=== PATIENT | male | born 1940 | race Caucasian/White ===

== ENCOUNTER 2018-03-03 12:34 | Inpatient (IN) | payer MEDICARE, BC ==
[~2018-03-03 12:34] MED LIST: ISOVUE-370 76%-LOCM 1 ML ONE
[2018-03-03] MEDS ORDERED: methylPREDNISolone Sod Succ/PF 125 MG/2 ML VIAL ONE (13:27)
[2018-03-03 13:31] LABS: #Basophils 0.1 thou/uL (0.0-0.2); #Eosinphils 0.1 thou/uL (0.0-0.7); #Lymphocytes 1.3 thou/uL (1.20-3.40); #Monocytes 0.6 thou/uL (0.11-0.59); %Basophils 0.9 % (0.0-1.0); %Eosinophils 2.1 % (0.0-10.0); %Lymphocytes 22.1 % (21.0-51.0); %Neutrophils 65.9 % (42.0-75.0); Hemoglobin 12.5 g/dL (14.0-18.0); Mean Corpuscular Hemoglobin 32.6 pg (27.0-31.0); Mean Corpuscular Volume 98.8 fL (78.0-98.0); Mean Platelet Volume 9.1 fL (7.4-10.4); Platelet Count 138 thou/uL (130-400); RBC Distribution Width 12.7 % (11.5-14.5); Red Blood Cell (RBC) Count 3.83 mill/uL (4.70-6.10); White Blood Cell (WBC) Count 6.1 thou/uL (4.8-10.8)
--- NOTE | 2018-03-03 13:37 | CT ---
CT HEAD NONCONTRAST: Date: 03/03/18 HISTORY: Left-sided weakness. COMPARISON: 09/01/04. FINDINGS: There is no evidence of acute intracranial hemorrhage or infarct. Diffuse cortical atrophy and chroni c ischemic small vessel disease has slightly progressed over the 13 year interval. No mass effect or shift of midline structures. IMPRESSION: No acute intracranial abnormalities are demonstrated on noncontrast CT head. Findings called to Dr. Gupta in the emergency department at 1305 hours. CODE CR. POS: [facility]
[2018-03-03 13:38] LABS: INR-International Normal Ratio 2.4; PTT 32.6 SEC (22.9-36.1); Prothrombin Time 26.2 SEC (12.0-14.7)
[2018-03-03 14:01] LABS: ALT (SGPT) 37 U/L (8-55); AST (SGOT) 47 U/L (5-34); Albumin 3.8 g/dL (3.4-4.8); Alkaline Phosphatase 49 U/L (40-150); Anion Gap 14 mmol/L (10-20); BUN (Urea Nitrogen) 36 mg/dL (8.4-25.7); Bilirubin, Total 0.6 mg/dL (0.2-1.2); Calc. Creatinine Clearance 0 mL/min (70-130); Calcium 11.9 mg/dL (7.8-10.44); Carbon Dioxide 27 mmol/L (23-31); Chloride 102 mmol/L (98-107); Estimated GFR-MDRD 43; Globulin 2.5 g/dL (2.4-3.5); Glucose 98 mg/dL (83-110); Potassium 3.8 mmol/L (3.5-5.1); Protein, Total 6.3 g/dL (5.8-8.1); Sodium 139 mmol/L (136-145)
[2018-03-03] MEDS ORDERED: Aspirin Chewable 81 MG TAB ONE (14:07)
[2018-03-03 14:21] LABS: CKMB 24.9 ng/mL (0-6.6)
--- NOTE | 2018-03-03 14:35 | RAD ---
FRONTAL VIEW CHEST: Date: 03/03/18 COMPARISON: 04/06/15. INDICATION: Syncope. FINDINGS: There is patient rotation with prominence of the cardiac silhouette projecting the cardiac silhouette to the right. Left side cardiac pacing device is again seen. There is obscuration of portions of the right lung due to the patient rotation and prominent cardiac silhouette. No obvious consolidation of the left lung. IMPRESSION: 1. Rotated patient limits assessment. 2. Enlarged cardiac silhouette, correlate clinically. 3. Limited visualization of the right lung. POS: [facility]
[2018-03-03 14:42] LABS: Bilirubin Negative (Negative); Blood, Urine Trace (Negative); Clarity TURBID (Clear); Glucose, Urine (Dipstick) Negative (Negative); Leukocyte Negative (Negative); Nitrite Negative (Negative); Protein, Urine (Dipstick) Negative (Neg-Trace); Specific Gravity, Urine 1.041 (1.002-1.036); Urobilinogen 0.2 mg/dL (0.2-1.0); pH, Urine 7.5 (5.0-9.0)
[2018-03-03 14:43] LABS: Bacteria/HPF None Seen HPF (None Seen); Hyaline Casts/LPF 4-6 HYALINE CAST LPF (0-3 Hyaline); Pathc Cast-AUWi Flag 1.59 (0-2.49); Squamous Epithelial 0-3 HPF (0-3); WBC/HPF 0-3 HPF (0-3)
--- NOTE | 2018-03-03 14:55 | CT ---
CT ARTERIOGRAM NECK WITH IV CONTRAST AND 3D MIP IMAGING: CT ARTERIOGRAM HEAD WITH IV CONTRAST AND 3D MIP IMAGING: CT BRAIN WITH IV CONTRAST: HISTORY: Altered mental status. Syncope. FINDINGS: There is normal branching of the great vessels at the aortic arch with mild calcification. Good flow into each carotid and vertebral system. At the right carotid bifurcation, there is calcified and noncalcified plaque. Within the proximal to mid right cervical ICA is a short segment focus of stenosis, estimated at 70%. On the left, there i s calcification without significant stenosis. Intracranially, there is calcification within the carotid siphons. The pilot point of [place] is intact. No focal filling defect, aneurysm, or significant stenosis apparent. No abnormal areas of parenchyma l enhancement are apparent. IMPRESSION: 1. Atherosclerosis. 2. Short segment focus of moderate stenosis involving the right extracranial internal carotid artery . Findings were called to Dr. Gupta in the emergency department at 1340 hours. CODE CR POS: [facility]
[2018-03-03] MEDS ORDERED: Nitroglycerin 0.4 MG TAB (25 Tab Bottle) SL PRN (15:41)
[2018-03-03] MEDS ORDERED: Diabetic Tussin 200 MG/10 ML UDCUP PO PRN (15:41)
[2018-03-03] MEDS ORDERED: Ondansetron PF 4 MG/2 ML Vial IVP PRN (15:41)
[2018-03-03] MEDS ORDERED: Acetaminophen 325 MG TAB PO PRN (15:41)
[2018-03-03] MEDS ORDERED: Loratadine 10 MG TAB PO PRN (15:41)
[2018-03-03] MEDS ORDERED: Loperamide HCl 2 MG CAP PO PRN (15:41)
[2018-03-03] MEDS ORDERED: Bisacodyl 10 MG SUPP PR PRN (15:41)
[2018-03-03] MEDS ORDERED: Senokot S 8.6-50 MG TAB PO PRN (15:41)
[2018-03-03] MEDS ORDERED: Bisacodyl 5 MG TAB PO PRN (15:41)
[2018-03-03] MEDS ORDERED: Cepastat Lozenges 1 LOZ PO PRN (15:41)
[2018-03-03] MEDS ORDERED: Artificial Tears 18 DROP/0.9 ML EA EYE PRN (15:41)
[2018-03-03] MEDS ORDERED: hydrALAZINE 20 MG/ML VIAL SLOW IVP PRN (15:41)
[2018-03-03] MEDS ORDERED: Sodium Chloride 0.65% Nasal 44 ML BOT EA NARE PRN (15:41)
[2018-03-03] MEDS ORDERED: Eucerin (Mineral Oil/Petrolatum,White) 30 gm Jar TOP PRN (15:41)
[2018-03-03 16:07] LABS: Magnesium 1.9 mg/dL (1.6-2.6)
--- NOTE | 2018-03-03 16:26 | HP ---
PRIMARY CARE PHYSICIAN: Dr. Fabien Polanco. PRIMARY FINAL ASSEMBLY WORKER: Dr. Mendez Licea. REASON FOR ADMISSION: Syncope/seizure/stroke, elevated troponin, COPD exacerbation. HISTORY OF PRESENT ILLNESS: A 77-year-old male, who has multiple medical problems including chronic atrial fibrillation, on chronic anticoagulation therapy; COPD with chronic respiratory failure with home oxygen therapy as well as chronic diastolic heart failure, who presented to emergency room for evaluation of sudden change in mental status at home around lunchtime. The patient's witnessed the episode, who provided history. The patient was seated at lunchtime in chair and while seated, he was having involuntary movement of upper and lower extremity as if seizure without any up-rolling of eyeball or associated with incontinence or any tongue bite. With the seizing movement, the patient was trying to get up from chair. At that time, he is supposed to fall, but the patient's kept the chair underneath to prevent fall. He did not have any fall on the floor. He was able to talk a couple of sentences to his at that time, which was pretty much normal per . The patient was appeared slightly confused and subsequently again he lost consciousness for seconds while seated in chair. The patient's did not notice any focal left or right-sided weakness. The patient was not complaining of any chest pain or palpitation. The patient does have chronic COPD and he is chronically short of breath and he has significant physical deconditioning. He ambulates with a walker and he drags left side of his lower extremity whenever he ambulates from his previous stroke. The patient has almost one year history of lightheadedness and dizziness and for that reason, the patient was evaluated extensively with CT brain as well as ENT evaluation and all was unremarkable. Four days ago when the patient was in bathroom at that time, his leg gave up and he was extremely weak. He was not able to lift himself. The patient's family member reports that his condition is getting significantly weak from his baseline for the last few weeks. The patient does have oxygen at home, but he is not using oxygen regularly. When paramedics was called by his today, he was hypoxic and he was given oxygen and subsequently, he was brought to emergency room for evaluation. In the emergency room, CT brain did not show any acute intracranial process, but he was found with right internal carotid artery stenosis. All other blood test was unremarkable except elevated CK-MB and troponin. 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 PAST SURGICAL HISTORY: Pacemaker placement. PAST PSYCHIATRIC HISTORY: Anxiety and depression. FAMILY HISTORY: No family history of coronary artery disease, stroke, or cancer. ALLERGIES: BENZODIAZEPINE. SOCIAL HISTORY: No history of smoking, alcohol or drug abuse. pt is . walks with walker. EMERGENCY ROOM COURSE: The patient is given aspirin, DuoNeb therapy, and Solu-Medrol 125 mg. REVIEW OF SYSTEMS: CONSTITUTIONAL: Negative for weight loss or gain, ability to conduct usual activities. SKIN: Negative for rash, itching. EYES: Negative for double vision, pain. ENT/MOUTH: Negative for nose bleeding, neck stiffness, pain, tenderness. CARDIOVASCULAR: Negative for palpitations, dyspnea on exertion, orthopnea. RESPIRATORY: Negative for shortness of breath, wheezing, cough, hemoptysis, fever or night sweats. GASTROINTESTINAL: Negative for poor appetite, abdominal pain, heartburn, nausea , vomiting, constipation, or diarrhea. GENITOURINARY: Negative for urgency, frequency, dysuria, nocturia. MUSCULOSKELETAL: Negative for pain, swelling. NEUROLOGIC/PSYCHIATRIC: Negative for anxiety, depression. ALLERGY/IMMUNOLOGIC: Negative for skin rash, bleeding tendency. Please see my HPI for pertinent positive and negative. All other review of systems reviewed and negative except as mentioned in HPI. CURRENT HOME MEDICATIONS: 1. Seroquel 200 mg at bedtime and 50 mg in the morning. 2. Warfarin 5 mg daily except on and Thursday, he takes 7.5 mg. 3. Synthroid 100 mcg p.o. daily. 4. Aldactazide 25/25 one tablet daily. 5. Coreg 3.125 mg b.i.d. PHYSICAL EXAMINATION: VITAL SIGNS: Currently, blood pressure 136/71, pulse 71, respiratory rate 18, saturation 99% on 2 L oxygen, temperature 98.5, weight 107.7 kg. GENERAL: The patient is currently alert, awake, follows commands. No obvious acute distress. HEENT: Head; normocephalic, atraumatic. Eyes; pupils round, reactive to light. Extraocular muscle intact. ENT; oropharynx within normal limits. Moist mucous membranes. No oral lesion. No pharyngeal erythema. No exudate. NECK: Supple. No JVD. No thyromegaly. No carotid bruit. LUNGS: Bilateral end-expiratory wheezing. No rales. No accessory muscles of respiration in use. CARDIAC: S1 and S2. Slightly irregular. No gallop. No rub. ABDOMEN: Soft. Obesity present. Bowel sounds present. Nontender. Nondistended. No organomegaly. No mass. No suprapubic tenderness. BACK: Unremarkable. No CVA tenderness. EXTREMITIES: Upper extremities; passive movement of all joints are normal. Lower extremities; passive movement of all joints are normal. SKIN: No skin rash other than multiple old bruises on the skin. NEUROLOGIC: The patient is able to lift all four limbs. Could not find out any focal deficit. He does have residual left-sided weakness from stroke. His sensation is intact. His reflex is symmetrical. Plantar bilateral flexor grossly. Cerebellar signs are negative. PSYCHIATRIC: Normal affect. SIGNIFICANT LABORATORY DATA: CT brain based on my review; no acute intracranial process, cortical atrophy, chronic ischemic white matter changes. CT jamul of [place] showing right carotid stenosis. CBC; WBC 6.1, hemoglobin 12.5, MCV 98.8, platelets 138. INR 2.4. BMP; sodium 139, potassium 3.8, chloride 102, carbon dioxide 27, anion gap 14, BUN 36, creatinine 1.57, glucose 98, calcium 11.9, AST 47, ALT 37, alkaline phosphatase 49, albumin 3.8. CK-MB 24.9, troponin I 0.031. Urinalysis unremarkable. EKG showing pacemaker rhythm. Chest x-ray showing COPD changes, cardiomegaly. ASSESSMENT AND PLAN: 1. Acute encephalopathy, etiology is uncertain, but differential diagnosis for acute encephalopathy is syncope/seizure/cerebrovascular accident. The patient will need more further investigation. Neurology will be consulted. 2. Syncope/seizure. The patient's family member reports involuntary movement when that happened, but pretty much description is atypical. We will ask Neurology to comment about that. He had a previous history of stroke and that may be related with post-cerebrovascular accident seizure. He will benefit from EEG. He has pacemaker, so we have to find it out whether pacemaker is compatible with MRI or not to get an MRI. We will check prolactin, magnesium, TSH as a part of workup and we will keep seizure precaution. We will do neuro check. 3. Suspected cerebrovascular accident. We will do neuro check q.4 hourly. The patient does have right-sided carotid stenosis. At this point, does not have any lateralization. We will try to do MRI if possible. We will obtain echocardiography. Cardiovascular surgeon will be involved if the patient has significant carotid stenosis based on report. Neurology will be consulted. The patient will need PT, OT, and possible rehab placement. 4. Chronic obstructive pulmonary disease exacerbation. We will continue with DuoNeb q.6 hourly, Pulmicort nebulization twice daily. 5. Chronic respiratory failure, on home oxygen therapy. Oxygen to keep saturation above 92%. 6. Elevated troponin and CK-MB. We will check total CK and we will do serial cardiac enzyme x3. Echocardiography will be obtained. We will continue with aspirin 81 mg daily. Cardiology will be consulted. 7. Mild hypercalcemia, probably related with hydrochlorothiazide. We will repeat calcium level tomorrow. 8. Macrocytic anemia. We will start folic acid, vitamin B12 therapy, and we will check homocysteine level. 9. Chronic anticoagulation with warfarin. We will continue PT/INR while in the hospital and monitor PT/INR on a daily basis. 10. Chronic kidney disease, stage 3. We will monitor renal function. 11. Anxiety and depression. The patient is taking Seroquel, which we will continue while in hospital. 12. Hypothyroidism. Continue Synthroid 100 mcg p.o. daily. 13. Chronic diastolic heart failure. We will check BNP. Echocardiography will be obtained. We will continue Coreg 3.125 mg p.o. b.i.d. 14. History of pacemaker for chronic atrial fibrillation. We will interrogate pacemaker to rule out any pacemaker-related arrhythmia. 15. Chronic atrial fibrillation, currently rate controlled. Continue Coreg 3.125 mg p.o. b.i.d. and warfarin as per home dosage. 16. Deep venous thrombosis prophylaxis, not needed because the patient is already on warfarin therapy. 17. Gastrointestinal prophylaxis. Pepcid 20 mg p.o. b.i.d. CODE STATUS: The patient is full code. The patient's is surrogate decision maker. DISPOSITION PLAN: This patient will need rehabilitation placement for his significant physical deconditioning. Plan of care discussed with the patient and family member at bedside in the emergency room. Job ID: [id number] [facility]
[2018-03-03 17:59] LABS: Troponin I 0.028 ng/mL (< 0.028)
[2018-03-03 18:52] VITALS: BMI 34.9
[2018-03-03] MEDS: Budesonide 0.5 MG/2 ML NEB INH SCH (19:27)
[2018-03-03] MEDS: Mometasone/Formoterol 120 PUFF INHALER INH SCH (19:28)
[2018-03-03] MEDS: Carvedilol 3.125 MG TAB PO SCH (20:12)
[2018-03-03] MEDS: Warfarin Sodium 5 MG TAB PO SCH (20:12)
[2018-03-03 20:24] LABS: Troponin I 0.019 ng/mL (< 0.028)
[2018-03-03] MEDS: Famotidine 20 MG TAB PO SCH (21:13)
[2018-03-03] MEDS: Atorvastatin Calcium 40 MG TAB PO SCH (21:13)
--- NOTE | 2018-03-04 00:11 | CON ---
DATE OF CONSULTATION: REASON FOR CONSULTATION: Evaluate the patient with carotid stenosis. HISTORY OF PRESENT ILLNESS: Mr. Elkins is a 77-year-old gentleman who was brought to the emergency room after having an event at lunch time with his . He was apparently sitting at the table, became very rigid in both his arms and legs and shaky. His described it as almost seizure-like. She was able to get a chair behind him and then he sat and fell face forward into his plate of food. She says that he may have passed out for a short period of time. He was brought by EMS to the hospital. He has had a CT scan of his brain, which shows no acute abnormality. CT scan of the carotid system has been performed. It is reported that there is a 70% stenosis of the right internal carotid artery just distal to the bifurcation. I evaluated the CT scan. There is a calcified plaque involving his proximal right internal carotid artery. There is noncalcified plaque within the calcification. The stenosis on the coronal views and longitudinal views does not show a critical stenosis. The patient does have a history of a previous stroke. He approximately 16 years ago had an episode where he became very weak. He was diagnosed with a stroke at that time. It is unclear as to what workup was done around that time. He has a history of chronic atrial fibrillation. He is on chronic Coumadin therapy with an INR of 2.5. He has chronic COPD, is managed with Dr. Mckeon. He does have oxygen at home, but he does not use it very much. He is on 4 L of oxygen currently and can talk in about 5-word partial sentences at a time at most. He is very deconditioned and has been lightheaded and dizzy over the last year. He has had a significant ENT and neurologic workup with no diagnosis given. His deconditioning, he has been working on at a gym with the animal attendants and trainers, but does not seem to make any headway. His says he can walk, but uses either the fajardo to walker to help steady himself. PAST SURGICAL HISTORY: 1. Left shoulder surgery. 2. Pacemaker placement. CURRENT MEDICATIONS: Noted. ALLERGIES: LORAZEPAM. REVIEW OF SYSTEMS: As above. PHYSICAL EXAMINATION: GENERAL: This is a chronically ill appearing gentleman, who I have evaluated in the emergency department. NECK: Supple. I cannot auscultate a bruit. CHEST: Distant breath sounds bilaterally. HEART: Rhythm is irregularly irregular. ABDOMEN: Soft and nontender. EXTREMITIES: No significant edema. NEUROLOGIC: Motor exam is symmetric and strong bilaterally. There are no deficits grossly. He has no visual deficits grossly. ASSESSMENT AND PLAN: I have reviewed his CT angiogram. He does not have a significant right carotid stenosis. I have discussed the findings with his family. They are obviously searching for answers as to his dizziness, lightheadedness, and what happened to him today with his seizure-like activity. This is unrelated to the carotid stenosis. At most due to his chronic illness, I would add an 81 mg aspirin-but with him being on Coumadin and anticoagulated, I am not sure that he would tolerate this, I would leave this at your discretion. Job ID: [id number]
[2018-03-04 05:14] LABS: #Lymphocytes 0.8 thou/uL (1.20-3.40); #Monocytes 0.5 thou/uL (0.11-0.59); #Neutrophils 6.3 thou/uL (1.40-6.50); %Basophils 0.1 % (0.0-1.0); %Eosinophils 0.2 % (0.0-10.0); %Lymphocytes 10.5 % (21.0-51.0); %Neutrophils 83.3 % (42.0-75.0); Hemoglobin 12.2 g/dL (14.0-18.0); INR-International Normal Ratio 2.4; Mean Corpuscular HGB CONC 32.8 g/dL (32.0-36.0); Mean Corpuscular Hemoglobin 32.5 pg (27.0-31.0); Mean Platelet Volume 9.4 fL (7.4-10.4); Platelet Count 137 thou/uL (130-400); Prothrombin Time 25.8 SEC (12.0-14.7); RBC Distribution Width 12.6 % (11.5-14.5); Red Blood Cell (RBC) Count 3.77 mill/uL (4.70-6.10); White Blood Cell (WBC) Count 7.5 thou/uL (4.8-10.8)
[2018-03-04 05:57] LABS: ALT (SGPT) 35 U/L (8-55); AST (SGOT) 43 U/L (5-34); Albumin 3.9 g/dL (3.4-4.8); Alkaline Phosphatase 47 U/L (40-150); Anion Gap 14 mmol/L (10-20); BUN (Urea Nitrogen) 37 mg/dL (8.4-25.7); Bilirubin, Total 0.4 mg/dL (0.2-1.2); Calc. Creatinine Clearance 69 mL/min (70-130); Calcium 11.1 mg/dL (7.8-10.44); Carbon Dioxide 25 mmol/L (23-31); Cardiac Risk 2.5 (Less than 4.5); Chloride 105 mmol/L (98-107); Cholesterol 133 mg/dl (< 200 Desired); Estimated GFR-MDRD 51; Globulin 2.5 g/dL (2.4-3.5); Glucose 122 mg/dL (83-110); HDL Cholesterol 54 mg/dL (>60 Neg Risk); LDL Cholesterol, Calculated 68 mg/dL; Potassium 3.7 mmol/L (3.5-5.1); Protein, Total 6.4 g/dL (5.8-8.1); Sodium 140 mmol/L (136-145); Triglycerides 57 mg/dL (Less than 150)
[2018-03-04] MEDS: Levothyroxine Sodium 100 MCG TAB PO SCH (06:14)
[2018-03-04] MEDS: Mometasone/Formoterol 120 PUFF INHALER INH SCH ×2 (07:18→18:19)
[2018-03-04] MEDS: Budesonide 0.5 MG/2 ML NEB INH SCH ×2 (07:22→18:19)
[2018-03-04] MEDS: Folic Acid 1 MG TAB PO SCH (10:08)
[2018-03-04] MEDS: Aspirin Chewable 81 MG TAB PO SCH (10:08)
[2018-03-04] MEDS: Cyanocobalamin (Vitamin B-12) 1,000 MCG TAB PO SCH (10:08)
[2018-03-04] MEDS: Famotidine 20 MG TAB PO SCH ×2 (10:10→21:45)
[2018-03-04] MEDS: Carvedilol 3.125 MG TAB PO SCH ×2 (10:11→17:00)
--- NOTE | 2018-03-04 11:52 | PDOC.PN ---
- Subjective Encounter Start Date: 03/04/18 Encounter Start Time: 07:35 -: old records requested/rev pt's dyspnea improving, no further neuro event Patient seen and examined. No new complaints. No overnight events - Objective Resuscitation Status - Order Detail: 03/03/18 15:27 Resuscitation Status Routine Resuscitation Status: FULL: Full Resuscitation MAR Reviewed: Yes Vital Signs & Weight: Vital Signs (12 hours) Temp Pulse Resp BP BP Pulse Ox 03/04/18 11:39 97.4 F L 70 18 122/69 95 03/04/18 07:45 97.8 F 69 20 157/75 H 95 03/04/18 07:23 95 03/04/18 07:22 73 16 95 03/04/18 07:18 73 18 95 03/04/18 05:10 68 128/61 03/04/18 05:07 70 120/58 L 03/04/18 05:06 134/76 03/04/18 04:00 97.8 F 73 19 129/56 L 95 03/04/18 00:00 97.9 F 64 19 112/60 93 L Weight Weight 230 lb Result Diagrams: 03/04/18 04:46 03/04/18 04:46 Additional Labs: Accuchecks 03/03/18 12:59 POC Glucose 101 EKG Reviewed by me: Yes (afib) Phys Exam - Physical Examination Constitutional: NAD HEENT: PERRLA, moist MMs, sclera anicteric Neck: no JVD, supple Respiratory: no rales, wheezing present Cardiovascular: no significant murmur, irregular Gastrointestinal: soft, non-tender, no distention, positive bowel sounds Musculoskeletal: no edema, pulses present Neurological: non-focal, normal sensation Lymphatic: no nodes Psychiatric: normal affect, A&O x 3 Skin: no rash, normal turgor Dx/Plan (1) COPD exacerbation Code(s): J44.1 - CHRONIC OBSTRUCTIVE PULMONARY DISEASE W (ACUTE) EXACERBATION Status: Acute Comment: on debbie landrum (2) Dizziness Code(s): R42 - DIZZINESS AND GIDDINESS Status: Acute Comment: unexplained, may be overall weakness (3) Rhabdomyolysis Code(s): M62.82 - RHABDOMYOLYSIS Status: Acute (4) Seizure Code(s): R56.9 - UNSPECIFIED CONVULSIONS Status: Acute Comment: suspected (5) Syncope Code(s): R55 - SYNCOPE AND COLLAPSE Status: Acute (6) Carotid stenosis, right Code(s): I65.21 - OCCLUSION AND STENOSIS OF RIGHT CAROTID ARTERY Status: Chronic (7) Chronic anticoagulation Code(s): Z79.01 - LAVATORY ATTENDANT (CURRENT) USE OF ANTICOAGULANTS Status: Chronic (8) Chronic atrial fibrillation Code(s): I48.2 - CHRONIC ATRIAL FIBRILLATION Status: Chronic (9) Dyslipidemia Code(s): E78.5 - HYPERLIPIDEMIA, UNSPECIFIED Status: Chronic (10) Hypothyroidism Code(s): E03.9 - HYPOTHYROIDISM, UNSPECIFIED Status: Chronic (11) Macrocytic anemia Code(s): D53.9 - NUTRITIONAL ANEMIA, UNSPECIFIED Status: Chronic (12) Obesity (BMI 30-39.9) Code(s): E66.9 - OBESITY, UNSPECIFIED Status: Chronic (13) Physical deconditioning Code(s): R53.81 - OTHER MALAISE Status: Chronic (14) CVA (cerebral vascular accident) Code(s): I63.9 - CEREBRAL INFARCTION, UNSPECIFIED Status: Suspected (15) Bipolar disorder Code(s): F31.9 - BIPOLAR DISORDER, UNSPECIFIED Status: Chronic - Plan cont current plan of care, plan discussed w/ family, PT/OT, protective services social worker * continue medical therapy for carotid stenosis, no need of surgery as per CV surgeon * today EEG, neurology to see him today, pt is not inclined with anti seizure meds * will need rehab for his weakness * discussed with family and answered their all questions * medication reviewed as below * symptomatic treatment. Review of Systems - Review of Systems Constitutional: weakness. negative: fever, chills, sweats, malaise, other Respiratory: Wheezing. negative: Cough, Dry, Shortness of Breath, Hemoptysis, SOB with Excertion, Pleuritic Pain, Sputum Cardiovascular: light headedness. negative: chest pain, palpitations, orthopnea , paroxysmal nocturnal dyspnea, edema, other Gastrointestinal: negative: Nausea, Vomiting, Abdominal Pain, Diarrhea, Constipation, Melena, Hematochezia, Other Genitourinary: negative: Dysuria, Frequency, Incontinence, Hematuria, Retention , Other Musculoskeletal: negative: Neck Pain, Shoulder Pain, Arm Pain, Back Pain, Hand Pain, Leg Pain, Foot Pain, Other - Medications/Allergies Allergies/Adverse Reactions: Allergies Allergy/AdvReac Type Severity Reaction Status Date / Time lorazepam [From Ativan] Allergy Verified 03/03/18 16:58 Medications: Current Medications Acetaminophen (Tylenol) 650 mg PO Q4H PRN PRN Reason: Headache/Fever/Mild Pain (1-3) Albuterol/Ipratropium (Duoneb) 3 ml NEB [id number] PRN PRN Reason: SOB &/or Wheezing Albuterol/Ipratropium (Duoneb) 3 ml NEB [id number] [facility] Last Admin: 03/04/18 07:22 Dose: 3 ml Artificial Tears (Tears Naturale) 2 drop EA EYE PRN PRN PRN Reason: Dry Eyes Aspirin (Aspirin Chewable) 81 mg PO DAILY [facility] Last Admin: 03/04/18 10:08 Dose: 81 mg Atorvastatin Calcium (Lipitor) 40 mg PO HS [facility] Last Admin: 03/03/18 21:13 Dose: 40 mg Bisacodyl (Dulcolax) 10 mg NM DAILYPRN PRN PRN Reason: Constipation Bisacodyl (Dulcolax) 10 mg PO DAILYPRN PRN PRN Reason: Constipation Budesonide (Pulmicort Neb Solution) 0.5 mg INH BID-RT [facility] Last Admin: 03/04/18 07:22 Dose: 0.5 mg Carvedilol (Coreg) 3.125 mg PO BID-WM [facility] Last Admin: 03/04/18 10:11 Dose: 3.125 mg Cyanocobalamin (Vitamin B-12) 1,000 mcg PO DAILY [facility] Last Admin: 03/04/18 10:08 Dose: 1,000 mcg Famotidine (Pepcid) 20 mg PO BID [facility] Last Admin: 03/04/18 10:10 Dose: Not Given Folic Acid (Folvite) 1 mg PO DAILY [facility] Last Admin: 03/04/18 10:08 Dose: 1 mg Guaifenesin (Robitussin Sf) 200 mg PO Q4H PRN PRN Reason: Cough Hydralazine HCl (Apresoline) 10 mg SLOW IVP Q4H PRN PRN Reason: SBP > 180 and HR < 70 Levothyroxine Sodium (Synthroid) 100 mcg PO 0600 [facility] Last Admin: 03/04/18 06:14 Dose: 100 mcg Loperamide HCl (Imodium) 2 mg PO PRN PRN PRN Reason: Diarrhea/Loose Stools Loratadine (Claritin) 10 mg PO DAILYPRN PRN PRN Reason: Sinus Symptoms Mineral Oil/White Petrolatum (Eucerin Cream) 0 gm TOP BIDPRN PRN PRN Reason: Dry Skin Mometasone Furoate/Formoterol Fumar (Dulera 200 Mcg/5 Mcg Inhaler) 2 puff INH BID-RT [facility] Last Admin: 03/04/18 07:18 Dose: 2 puff Nitroglycerin (Nitrostat) 0.4 mg SL Q5MIN PRN PRN Reason: Chest Pain Ondansetron HCl (Zofran Odt) 4 mg PO Q6H PRN PRN Reason: Nausea/Vomiting Ondansetron HCl (Zofran) 4 mg IVP Q6H PRN PRN Reason: Nausea/Vomiting Quetiapine Fumarate (Seroquel) 200 mg PO HS [facility] Last Admin: 03/03/18 21:13 Dose: 200 mg Senna/Docusate Sodium (Senokot S) 2 tab PO BID PRN PRN Reason: Constipation Sodium Chloride ([place] Nasal [place] 0.65%) 0 ml EA NARE QIDPRN PRN PRN Reason: Nasal Congestion Sodium Chloride (Flush - Normal Saline) 10 ml IVF PRN PRN PRN Reason: Saline Flush Last Admin: 03/04/18 10:13 Dose: 10 ml Throat Lozenges (Cepastat Lozenges) 1 geovanni PO Q2H PRN PRN Reason: Sore Throat Warfarin Sodium (Coumadin) 5 mg PO 1700 [facility] Last Admin: 03/03/18 20:12 Dose: Not Given
[2018-03-04] MEDS ORDERED: Hydrochlorothiazide 25 MG TAB PO SCH (15:00)
[2018-03-04] MEDS ORDERED: Spironolactone 25 MG TAB PO SCH (15:00)
--- NOTE | 2018-03-04 16:00 | CON ---
DATE OF CONSULTATION: HISTORY OF PRESENT ILLNESS: Mr. Elkins is a very pleasant 77-year-old gentleman who recently presented with mental status changes. His states it has been noted over the last 3 to 4 days. No chest pain or pressure noted. I was consulted for elevated troponin. His troponin was 0.031. No previous history of underlying coronary artery disease. He does have history of atrial fibrillation. He has previous stroke diagnosed 19 years ago with residual left-sided weakness. He also has a pacer. His primary photovoltaic panel installer is Dr. Mendez Licea. PAST MEDICAL HISTORY: Atrial fibrillation, status post pacemaker; CVA; COPD; hypothyroidism; hypertension; status post pacemaker; anxiety; and depression. ALLERGIES: BENZODIAZEPINE. SOCIAL HISTORY: No current tobacco or alcohol use. REVIEW OF SYSTEMS: A 10-point review of systems is reviewed and as above, otherwise negative. PHYSICAL EXAMINATION: GENERAL: Patient is a pleasant 77-year-old male who is in no acute distress. The patient appears their stated age. VITAL SIGNS: Blood pressure 122/69, pulse is 70, temperature afebrile. NEUROLOGIC: Left-sided weakness. HEENT: Sclerae without icterus. Mouth has moist mucous membranes with normal pallor. NECK: No JVD. Carotid upstroke brisk. No bruits bilaterally. LUNGS: Clear to auscultation with unlabored respirations. BACK: No scoliosis or kyphosis. CARDIAC: Regular rate and rhythm with normal S1 and S2. No S3 or S4 noted. No significant rubs, murmurs, thrills, or gallops noted throughout the precordium. PMI is not displaced. There is no parasternal heave. ABDOMEN: Soft, nontender, nondistended. No peritoneal signs present. No hepatosplenomegaly. No abnormal striae. EXTREMITIES: 2+ femoral and 2+ dorsalis pedis pulses. No cyanosis, clubbing, or edema. SKIN: No gross abnormalities. PERTINENT LABORATORY DATA: Hemoglobin 12.2. Creatinine 1.37, peak troponin 0.031, otherwise negative. EKG shows paced rhythm. IMPRESSION: 1. Mental status changes. 2. Recent seizure. 3. Atrial fibrillation. 4. Elevated troponin. RECOMMENDATIONS: I am not concerned about his elevated troponin. This is unlikely contributed to his current demise. This may be related to his seizure and in addition his creatinine. At this point, recommendations. We would recommend interrogating his pacemaker to assess for significant dysrhythmias. Neurology has been consulted for mental status changes. Job ID: [id number]
[2018-03-04] MEDS: Warfarin Sodium 5 MG TAB PO SCH (17:00)
[2018-03-04] MEDS: Atorvastatin Calcium 40 MG TAB PO SCH (21:46)
--- NOTE | 2018-03-05 00:02 | CON ---
DATE OF CONSULTATION: 03/04/2018 CONSULTING PHYSICIAN: Hospitalist Service. IMPRESSION: 1. Questionable seizure. 2. Early dementia. 3. Pacemaker. PLAN: 1. Decrease Coreg to a single morning dose to determine whether this is a source of his dizziness. 2. Monitor for further episodes before committing to anticonvulsant therapy. HISTORY OF PRESENT ILLNESS: Mr. Elkins is a 77-year-old man who was admitted after he had an episode while sitting at the kitchen table. His noted that he had developed a look on his face as if he was scared. He then tried to stand himself up and was very shaky. She had him sit back down to the chair and then he lost consciousness. His face went down into his plate. He was only down there for matter of a second or two before he regained consciousness. He sat himself up and did not report any other ongoing symptoms. He did not complain of a headache, nausea, vomiting, chest pain, or shortness of breath. He has had a few other unexplained falls that were unwitnessed. His has checked his orthostatic blood pressures on several occasions and not documented any hypotension. He generally runs about 110/70. He has been to the ENT and had vestibular testing and there was no evidence of benign positional vertigo. His laceworker has checked his pacemaker, which apparently is functioning normally. He has been showing signs of forgetfulness for the last several months. He repeats himself frequently. He is also getting a little confused about how to put his clothes on. He is not getting lost in the house. He came in for further evaluation following this episode, his CT of the brain showed some prominent cerebral atrophy without any evidence of chronic ischemic changes. CTA showed some stenosis of the right carotid. Vascular Surgery did not feel it was pertinent. He has never had any type of seizure in the past. PAST MEDICAL HISTORY: As listed above. ALLERGIES: ATIVAN. SOCIAL HISTORY: No tobacco or alcohol use. FAMILY HISTORY: Unremarkable. REVIEW OF SYSTEMS: 10-system review of systems is, otherwise, negative. PHYSICAL EXAMINATION: GENERAL: He is a well-nourished elderly man, sitting up in bed, in no acute distress. VITAL SIGNS: Stable. He is afebrile. HEENT: Pupils are equal and reactive. Conjunctivae clear. Oropharynx clear. Cranium, normocephalic and atraumatic. NECK: Supple. No lymphadenopathy. EXTREMITIES: No cyanosis, clubbing, or edema. NEUROLOGIC: He was alert and cooperative. Follows commands appropriately. There was some slowness about the way he responded to questions. He answered accurately as far as his orientation. His speech was fluent and clear, although a bit quiet. Motor exam showed antigravity strength bilaterally without fix or drift. He seemed to have some diminished control and rapid alternating movements on the left side. Sensation was equal to touch. Gait was not tested. No abnormal movements were seen. LABORATORY DATA: EEG did not show any evidence of epileptiform activity. SUMMARY: An elderly man who has been showing some early signs of dementia, who had a questionable seizure like episode. It is difficult to prove that there was not hypotension involved to cause the symptoms, although his prior testing has not been able to capture an event. He, otherwise, has prominent atrophy which could predispose him to seizures. The family is hesitant to see him started on anticonvulsant. I suggested we make a change in his medication and then see him in followup. Job ID: [id number] [facility]
[2018-03-05 05:13] LABS: INR-International Normal Ratio 2.2; Prothrombin Time 24.6 SEC (12.0-14.7)
[2018-03-05] MEDS: Levothyroxine Sodium 100 MCG TAB PO SCH (06:44)
[2018-03-05] MEDS: Budesonide 0.5 MG/2 ML NEB INH SCH ×2 (06:53→19:15)
[2018-03-05] MEDS: Mometasone/Formoterol 120 PUFF INHALER INH SCH ×2 (07:05→19:16)
--- NOTE | 2018-03-05 09:45 | EEG ---
Referring Physician: FABIANA EEG # [id number] TEST TYPE: ROUTINE PORTABLE INPATIENT REPORT: AN EEG USING THE INTERNATIONAL TEN-TWENTY SYSTEM OF ELECTRODE PLACEMENT WAS PERFORMED. The waking background is an 8 hertz Alpha frequency. No sleep was seen. Photic stimulation was unremarkable. No epileptiform features were present, IMPRESSION: THIS IS A NORMAL AWAKE EEG. Dialysis Patient Care Technician: SWTEA Tobacco Packer: [email or web address] PATRICIA
[2018-03-05] MEDS: Spironolactone 25 MG TAB PO SCH (09:48)
[2018-03-05] MEDS: Hydrochlorothiazide 25 MG TAB PO SCH (09:48)
[2018-03-05] MEDS: Aspirin Chewable 81 MG TAB PO SCH (09:49)
[2018-03-05] MEDS: Famotidine 20 MG TAB PO SCH (09:49)
[2018-03-05] MEDS: Cyanocobalamin (Vitamin B-12) 1,000 MCG TAB PO SCH (09:49)
[2018-03-05] MEDS: Folic Acid 1 MG TAB PO SCH (09:49)
--- NOTE | 2018-03-05 10:56 | PDOC.PN ---
- Subjective Encounter Start Date: 03/05/18 Encounter Start Time: 07:40 Patient seen and examined. No new complaints. No overnight events - Objective Resuscitation Status - Order Detail: 03/03/18 15:27 Resuscitation Status Routine Resuscitation Status: FULL: Full Resuscitation MAR Reviewed: Yes Vital Signs & Weight: Vital Signs (12 hours) Temp Pulse Resp BP Pulse Ox 03/05/18 07:51 97.5 F L 70 20 126/72 92 L 03/05/18 06:50 70 20 92 L 03/05/18 05:05 69 14 143/68 H 95 03/05/18 00:13 71 18 94 L 03/04/18 23:15 97.9 F 70 14 132/62 95 Weight Weight 230 lb I&O: 03/04/18 03/05/18 03/06/18 06:59 06:59 06:59 Intake Total 1180 Balance 1180 Result Diagrams: 03/04/18 04:46 03/04/18 04:46 EKG Reviewed by me: Yes (pacing) Phys Exam - Physical Examination Constitutional: NAD HEENT: PERRLA, moist MMs, sclera anicteric Neck: no JVD, supple Respiratory: no wheezing, no rales, no rhonchi Cardiovascular: no significant murmur, irregular Gastrointestinal: soft, non-tender, no distention, positive bowel sounds Musculoskeletal: no edema, pulses present Neurological: non-focal, normal sensation Lymphatic: no nodes Psychiatric: normal affect, A&O x 3 Skin: no rash, normal turgor Dx/Plan (1) COPD exacerbation Code(s): J44.1 - CHRONIC OBSTRUCTIVE PULMONARY DISEASE W (ACUTE) EXACERBATION Status: Acute Comment: on debbie landrum (2) Dizziness Code(s): R42 - DIZZINESS AND GIDDINESS Status: Acute Comment: unexplained, may be overall weakness (3) Rhabdomyolysis Code(s): M62.82 - RHABDOMYOLYSIS Status: Acute (4) Seizure Code(s): R56.9 - UNSPECIFIED CONVULSIONS Status: Acute Comment: suspected (5) Syncope Code(s): R55 - SYNCOPE AND COLLAPSE Status: Acute (6) Carotid stenosis, right Code(s): I65.21 - OCCLUSION AND STENOSIS OF RIGHT CAROTID ARTERY Status: Chronic (7) Chronic anticoagulation Code(s): Z79.01 - PENITENTIARY (CURRENT) USE OF ANTICOAGULANTS Status: Chronic (8) Chronic atrial fibrillation Code(s): I48.2 - CHRONIC ATRIAL FIBRILLATION Status: Chronic (9) Dyslipidemia Code(s): E78.5 - HYPERLIPIDEMIA, UNSPECIFIED Status: Chronic (10) Hypothyroidism Code(s): E03.9 - HYPOTHYROIDISM, UNSPECIFIED Status: Chronic (11) Macrocytic anemia Code(s): D53.9 - NUTRITIONAL ANEMIA, UNSPECIFIED Status: Chronic (12) Obesity (BMI 30-39.9) Code(s): E66.9 - OBESITY, UNSPECIFIED Status: Chronic (13) Physical deconditioning Code(s): R53.81 - OTHER MALAISE Status: Chronic (14) CVA (cerebral vascular accident) Code(s): I63.9 - CEREBRAL INFARCTION, UNSPECIFIED Status: Suspected (15) Bipolar disorder Code(s): F31.9 - BIPOLAR DISORDER, UNSPECIFIED Status: Chronic - Plan cont current plan of care, plan discussed w/ family, PT/OT, manager social, respiratory therapy * miralax for constipation * medication reviewed as below * symptomatic treatment * await rehab placement * EEG normal * discussed with family. Review of Systems - Review of Systems Constitutional: weakness. negative: fever, chills, sweats, malaise, other ENT: negative: Ear Pain, Ear Discharge, Nose Pain, Nose Discharge, Nose Congestion, Mouth Pain, Mouth Swelling, Throat Pain, Throat Swelling, Other Respiratory: negative: Cough, Dry, Shortness of Breath, Hemoptysis, SOB with Excertion, Pleuritic Pain, Sputum, Wheezing Cardiovascular: negative: chest pain, palpitations, orthopnea, paroxysmal nocturnal dyspnea, edema, light headedness, other Gastrointestinal: negative: Nausea, Vomiting, Abdominal Pain, Diarrhea, Constipation, Melena, Hematochezia, Other Genitourinary: negative: Dysuria, Frequency, Incontinence, Hematuria, Retention , Other Musculoskeletal: negative: Neck Pain, Shoulder Pain, Arm Pain, Back Pain, Hand Pain, Leg Pain, Foot Pain, Other - Medications/Allergies Allergies/Adverse Reactions: Allergies Allergy/AdvReac Type Severity Reaction Status Date / Time lorazepam [From Ativan] Allergy Verified 03/03/18 16:58 Medications: Current Medications Acetaminophen (Tylenol) 650 mg PO Q4H PRN PRN Reason: Headache/Fever/Mild Pain (1-3) Albuterol/Ipratropium (Duoneb) 3 ml NEB [id number] PRN PRN Reason: SOB &/or Wheezing Albuterol/Ipratropium (Duoneb) 3 ml NEB [id number] [facility] Last Admin: 03/05/18 06:50 Dose: 3 ml Artificial Tears (Tears Naturale) 2 drop EA EYE PRN PRN PRN Reason: Dry Eyes Aspirin (Aspirin Chewable) 81 mg PO DAILY [facility] Last Admin: 03/05/18 09:49 Dose: 81 mg Atorvastatin Calcium (Lipitor) 40 mg PO HS [facility] Last Admin: 03/04/18 21:46 Dose: 40 mg Bisacodyl (Dulcolax) 10 mg [place] DAILYPRN PRN PRN Reason: Constipation Bisacodyl (Dulcolax) 10 mg PO DAILYPRN PRN PRN Reason: Constipation Budesonide (Pulmicort Neb Solution) 0.5 mg INH BID-RT [facility] Last Admin: 03/05/18 06:53 Dose: 0.5 mg Cyanocobalamin (Vitamin B-12) 1,000 mcg PO DAILY [facility] Last Admin: 03/05/18 09:49 Dose: 1,000 mcg Famotidine (Pepcid) 20 mg PO BID [facility] Last Admin: 03/05/18 09:49 Dose: Not Given Folic Acid (Folvite) 1 mg PO DAILY [facility] Last Admin: 03/05/18 09:49 Dose: 1 mg Guaifenesin (Robitussin Sf) 200 mg PO Q4H PRN PRN Reason: Cough Hydralazine HCl (Apresoline) 10 mg SLOW IVP Q4H PRN PRN Reason: SBP > 180 and HR < 70 Hydrochlorothiazide (Hydrochlorothiazide) 25 mg PO QAM-WM [facility] Last Admin: 03/05/18 09:48 Dose: 25 mg Levothyroxine Sodium (Synthroid) 100 mcg PO 0600 [facility] Last Admin: 03/05/18 06:44 Dose: 100 mcg Loperamide HCl (Imodium) 2 mg PO PRN PRN PRN Reason: Diarrhea/Loose Stools Loratadine (Claritin) 10 mg PO DAILYPRN PRN PRN Reason: Sinus Symptoms Mineral Oil/White Petrolatum (Eucerin Cream) 0 gm TOP BIDPRN PRN PRN Reason: Dry Skin Mometasone Furoate/Formoterol Fumar (Dulera 200 Mcg/5 Mcg Inhaler) 2 puff INH BID-RT [facility] Last Admin: 03/05/18 07:05 Dose: 2 puff Nitroglycerin (Nitrostat) 0.4 mg SL Q5MIN PRN PRN Reason: Chest Pain Ondansetron HCl (Zofran Odt) 4 mg PO Q6H PRN PRN Reason: Nausea/Vomiting Ondansetron HCl (Zofran) 4 mg IVP Q6H PRN PRN Reason: Nausea/Vomiting Polyethylene Glycol (Miralax) 17 gm PO NOW [facility] Polyethylene Glycol (Miralax) 17 gm PO DAILY [facility] Quetiapine Fumarate (Seroquel) 200 mg PO HS [facility] Last Admin: 03/04/18 21:46 Dose: 200 mg Senna/Docusate Sodium (Senokot S) 2 tab PO BID PRN PRN Reason: Constipation Last Admin: 03/05/18 09:49 Dose: 2 tab Sodium Chloride ([place] Nasal [place] 0.65%) 0 ml EA NARE QIDPRN PRN PRN Reason: Nasal Congestion Sodium Chloride (Flush - Normal Saline) 10 ml IVF PRN PRN PRN Reason: Saline Flush Last Admin: 03/05/18 09:50 Dose: 10 ml Spironolactone (Aldactone) 25 mg PO QAM-WM [facility] Last Admin: 03/05/18 09:48 Dose: 25 mg Throat Lozenges (Cepastat Lozenges) 1 geovanni PO Q2H PRN PRN Reason: Sore Throat Warfarin Sodium (Coumadin) 5 mg PO 1700 [facility] Last Admin: 03/04/18 17:00 Dose: 5 mg
[2018-03-05] MEDS ORDERED: Polyethylene Glycol 3350 17 GM Packet PO SCH (11:00)
[2018-03-05] MEDS ORDERED: Carvedilol 3.125 MG TAB PO SCH (11:45)
--- NOTE | 2018-03-05 13:22 | CON ---
DATE OF CONSULTATION: 03/05/2018 Mr. Elkins reports that he still has some subjective dizziness. He has not been out of bed this morning with walker to do any PT. He was up frequently last night complaining of the need to urinate. He continued to have difficulty doing so. His reports he appeared to be a bit disoriented last night, otherwise calm and collected this morning. He ate his breakfast and is not having any trouble swallowing. His Coreg was held last night. We will assess his walking and determine whether rehab is an option for him. He has not had any further attacks of seizure-like episodes. Cardiology reports that the pacemaker is functioning properly. Need to continue to monitor blood pressures and see if we can find any objective changes associated with his complaints, but hold off on anticonvulsant until we have more proof that we are dealing with an epileptic issue. Job ID: [id number]
--- NOTE | 2018-03-05 13:29 | CON ---
DATE OF CONSULTATION: SUBJECTIVE: Mr. Elkins is doing well. No current complaints. He states his overall clinical status is unchanged. OBJECTIVE: VITAL SIGNS: Blood pressure 145/71, pulse 70, temperature 98.1. LUNGS: Clear to auscultation. HEART: Regular rate and rhythm. ABDOMEN: Soft, nontender, nondistended. EXTREMITIES: No edema. NEUROLOGIC: Unchanged. Left-sided weakness present. IMPRESSION: 1. Recent seizure. 2. Mental status changes. 3. Status post pacemaker. RECOMMENDATIONS: Pacemaker was interrogated. No significant dysrhythmias present. His primary peer counselor is Dr. Mendez Licea. From a CV standpoint, he appears stable. His troponin is minimally elevated and not felt to be of clinical significance. At this point, we would recommend discontinuing tele and transfer to Medical if he continues to be in the hospital. He has an appointment with Dr. Mendez Licea in the next 1 to 2 weeks. Otherwise, I have no recommendations. Please re-consult if needed. Job ID: [id number]
[2018-03-05] MEDS: Warfarin Sodium 5 MG TAB PO SCH (17:33)
[2018-03-05] MEDS: Atorvastatin Calcium 40 MG TAB PO SCH (20:41)
[2018-03-06] MEDS: Famotidine 20 MG TAB PO SCH ×2 (02:44→08:57)
[2018-03-06 05:04] LABS: INR-International Normal Ratio 1.7; Prothrombin Time 19.7 SEC (12.0-14.7)
[2018-03-06] MEDS: Levothyroxine Sodium 100 MCG TAB PO SCH (06:04)
[2018-03-06] MEDS: Budesonide 0.5 MG/2 ML NEB INH SCH (06:52)
[2018-03-06] MEDS: Mometasone/Formoterol 120 PUFF INHALER INH SCH (07:03)
[2018-03-06] MEDS ORDERED: Warfarin Sodium 5 MG TAB PO SCH (07:49)
[2018-03-06] MEDS ORDERED: Carvedilol 3.125 MG TAB PO SCH (08:00)
[2018-03-06 08:41] VITALS: TEMP 98
[2018-03-06] MEDS: Hydrochlorothiazide 25 MG TAB PO SCH (08:56)
[2018-03-06] MEDS: Spironolactone 25 MG TAB PO SCH (08:56)
[2018-03-06] MEDS: Ondansetron ODT 4 MG TAB PO PRN ×2 (08:56→15:37)
[2018-03-06] MEDS: Folic Acid 1 MG TAB PO SCH (08:56)
[2018-03-06] MEDS: Aspirin Chewable 81 MG TAB PO SCH (08:57)
[2018-03-06] MEDS: Cyanocobalamin (Vitamin B-12) 1,000 MCG TAB PO SCH (08:57)
[2018-03-06] MEDS ORDERED: Polyethylene Glycol 3350 17 GM Packet PO SCH (09:00)
[2018-03-06] MEDS ORDERED: Fleet Enema 133 ML BOT PR PRN (09:39)
--- NOTE | 2018-03-06 10:36 | PDOC.PN ---
- Subjective Encounter Start Date: 03/06/18 Encounter Start Time: 07:10 pt has constipation, no BM for few days, Patient seen and examined. No overnight events - Objective Resuscitation Status - Order Detail: 03/03/18 15:27 Resuscitation Status Routine Resuscitation Status: FULL: Full Resuscitation MAR Reviewed: Yes Vital Signs & Weight: Vital Signs (12 hours) Temp Pulse Resp BP Pulse Ox 03/06/18 08:00 98 F 70 20 175/94 H 92 L 03/06/18 07:03 68 16 03/06/18 06:53 90 L 03/06/18 06:52 68 16 03/06/18 04:00 98.2 F 70 20 143/96 H 97 03/06/18 00:00 98.0 F 70 19 124/70 92 L 03/05/18 23:58 73 16 93 L Weight Weight 230 lb I&O: 03/05/18 03/06/18 03/07/18 06:59 06:59 06:59 Intake Total 1180 960 Output Total 10 Balance 1180 950 Result Diagrams: 03/04/18 04:46 03/04/18 04:46 EKG Reviewed by me: Yes (pacing) Phys Exam - Physical Examination Constitutional: NAD HEENT: PERRLA, moist MMs, sclera anicteric Neck: no JVD, supple Respiratory: no wheezing, no rales, no rhonchi Cardiovascular: no significant murmur, irregular Gastrointestinal: soft, no distention, positive bowel sounds obesity+ Musculoskeletal: no edema, pulses present Neurological: non-focal, normal sensation, moves all 4 limbs Lymphatic: no nodes Psychiatric: normal affect, A&O x 3 Skin: no rash, normal turgor Dx/Plan (1) COPD exacerbation Code(s): J44.1 - CHRONIC OBSTRUCTIVE PULMONARY DISEASE W (ACUTE) EXACERBATION Status: Acute Comment: on debbie landrum (2) Dizziness Code(s): R42 - DIZZINESS AND GIDDINESS Status: Acute Comment: unexplained, may be overall weakness (3) Rhabdomyolysis Code(s): M62.82 - RHABDOMYOLYSIS Status: Acute (4) Seizure Code(s): R56.9 - UNSPECIFIED CONVULSIONS Status: Acute Comment: suspected (5) Syncope Code(s): R55 - SYNCOPE AND COLLAPSE Status: Acute (6) Carotid stenosis, right Code(s): I65.21 - OCCLUSION AND STENOSIS OF RIGHT CAROTID ARTERY Status: Chronic (7) Chronic anticoagulation Code(s): Z79.01 - SCRUB WHEEL OPERATOR (CURRENT) USE OF ANTICOAGULANTS Status: Chronic (8) Chronic atrial fibrillation Code(s): I48.2 - CHRONIC ATRIAL FIBRILLATION Status: Chronic (9) Dyslipidemia Code(s): E78.5 - HYPERLIPIDEMIA, UNSPECIFIED Status: Chronic (10) Hypothyroidism Code(s): E03.9 - HYPOTHYROIDISM, UNSPECIFIED Status: Chronic (11) Macrocytic anemia Code(s): D53.9 - NUTRITIONAL ANEMIA, UNSPECIFIED Status: Chronic (12) Obesity (BMI 30-39.9) Code(s): E66.9 - OBESITY, UNSPECIFIED Status: Chronic (13) Physical deconditioning Code(s): R53.81 - OTHER MALAISE Status: Chronic (14) CVA (cerebral vascular accident) Code(s): I63.9 - CEREBRAL INFARCTION, UNSPECIFIED Status: Suspected (15) Bipolar disorder Code(s): F31.9 - BIPOLAR DISORDER, UNSPECIFIED Status: Chronic (16) Constipation Code(s): K59.00 - CONSTIPATION, UNSPECIFIED Status: Acute - Plan cont current plan of care, plan discussed w/ family, PT/OT, social work lecturer * will give dulcolax WA now, if needed will give fleet enema later on * await rehab placement * medication reviewed as below * symptomatic treatment * discussed with * medically stable * copd is under control. Review of Systems - Review of Systems Constitutional: weakness. negative: fever, chills, sweats, malaise, other Eyes: negative: Pain, Vision Change, Conjunctivae Inflammation, Eyelid Inflammation, Redness, Other ENT: negative: Ear Pain, Ear Discharge, Nose Pain, Nose Discharge, Nose Congestion, Mouth Pain, Mouth Swelling, Throat Pain, Throat Swelling, Other Respiratory: negative: Cough, Dry, Shortness of Breath, Hemoptysis, SOB with Excertion, Pleuritic Pain, Sputum, Wheezing Cardiovascular: negative: chest pain, palpitations, orthopnea, paroxysmal nocturnal dyspnea, edema, light headedness, other Gastrointestinal: Constipation. negative: Nausea, Vomiting, Abdominal Pain, Diarrhea, Melena, Hematochezia, Other Musculoskeletal: negative: Neck Pain, Shoulder Pain, Arm Pain, Back Pain, Hand Pain, Leg Pain, Foot Pain, Other Skin: negative: Rash, Lesions, Crispin, Bruising, Other Neurological: negative: Weakness, Numbness, Incoordination, Change in Speech, Confusion, Seizures, Other - Medications/Allergies Allergies/Adverse Reactions: Allergies Allergy/AdvReac Type Severity Reaction Status Date / Time lorazepam [From Ativan] Allergy Verified 03/03/18 16:58 Medications: Current Medications Acetaminophen (Tylenol) 650 mg PO Q4H PRN PRN Reason: Headache/Fever/Mild Pain (1-3) Albuterol/Ipratropium (Duoneb) 3 ml NEB [id number] PRN PRN Reason: SOB &/or Wheezing Albuterol/Ipratropium (Duoneb) 3 ml NEB [id number] [facility] Last Admin: 03/06/18 06:52 Dose: 3 ml Artificial Tears (Tears Naturale) 2 drop EA EYE PRN PRN PRN Reason: Dry Eyes Aspirin (Aspirin Chewable) 81 mg PO DAILY [facility] Last Admin: 03/06/18 08:57 Dose: 81 mg Atorvastatin Calcium (Lipitor) 40 mg PO HS [facility] Last Admin: 03/05/18 20:41 Dose: 40 mg Bisacodyl (Dulcolax) 10 mg [place] DAILYPRN PRN PRN Reason: Constipation Bisacodyl (Dulcolax) 10 mg PO DAILYPRN PRN PRN Reason: Constipation Last Admin: 03/05/18 20:41 Dose: 10 mg Bisacodyl (Dulcolax) 10 mg WA NOW [place] Budesonide (Pulmicort Neb Solution) 0.5 mg INH BID-RT [facility] Last Admin: 03/06/18 06:52 Dose: 0.5 mg Carvedilol (Coreg) 3.125 mg PO QAM-WM [facility] Last Admin: 03/06/18 08:57 Dose: 3.125 mg Cyanocobalamin (Vitamin B-12) 1,000 mcg PO DAILY [facility] Last Admin: 03/06/18 08:57 Dose: 1,000 mcg Famotidine (Pepcid) 20 mg PO BID [facility] Last Admin: 03/06/18 08:57 Dose: 20 mg Folic Acid (Folvite) 1 mg PO DAILY [facility] Last Admin: 03/06/18 08:56 Dose: 1 mg Guaifenesin (Robitussin Sf) 200 mg PO Q4H PRN PRN Reason: Cough Hydralazine HCl (Apresoline) 10 mg SLOW IVP Q4H PRN PRN Reason: SBP > 180 and HR < 70 Hydrochlorothiazide (Hydrochlorothiazide) 25 mg PO [facility] Last Admin: 03/06/18 08:56 Dose: 25 mg Levothyroxine Sodium (Synthroid) 100 mcg PO 0600 [facility] Last Admin: 03/06/18 06:04 Dose: 100 mcg Loperamide HCl (Imodium) 2 mg PO PRN PRN PRN Reason: Diarrhea/Loose Stools Loratadine (Claritin) 10 mg PO DAILYPRN PRN PRN Reason: Sinus Symptoms Mineral Oil/White Petrolatum (Eucerin Cream) 0 gm TOP BIDPRN PRN PRN Reason: Dry Skin Mometasone Furoate/Formoterol Fumar (Dulera 200 Mcg/5 Mcg Inhaler) 2 puff INH BID-RT [facility] Last Admin: 03/06/18 07:03 Dose: 2 puff Nitroglycerin (Nitrostat) 0.4 mg SL Q5MIN PRN PRN Reason: Chest Pain Ondansetron HCl (Zofran Odt) 4 mg PO Q6H PRN PRN Reason: Nausea/Vomiting Last Admin: 03/06/18 08:56 Dose: 4 mg Ondansetron HCl (Zofran) 4 mg IVP Q6H PRN PRN Reason: Nausea/Vomiting Polyethylene Glycol (Miralax) 17 gm PO DAILY [facility] Quetiapine Fumarate (Seroquel) 200 mg PO [facility] Last Admin: 03/05/18 20:41 Dose: 200 mg Senna/Docusate Sodium (Senokot S) 2 tab PO BID PRN PRN Reason: Constipation Last Admin: 03/05/18 09:49 Dose: 2 tab Sodium Biphosphate/Sodium Phosphate (Fleet Enema) 133 ml [place] ONE PRN PRN Reason: Constipation Sodium Chloride ([place] Nasal [place] 0.65%) 0 ml EA NARE QIDPRN PRN PRN Reason: Nasal Congestion Sodium Chloride (Flush - Normal Saline) 10 ml IVF PRN PRN PRN Reason: Saline Flush Last Admin: 03/06/18 09:00 Dose: 10 ml Spironolactone (Aldactone) 25 mg PO [facility] Last Admin: 03/06/18 08:56 Dose: 25 mg Throat Lozenges (Cepastat Lozenges) 1 geovanni PO Q2H PRN PRN Reason: Sore Throat Warfarin Sodium (Coumadin) 7.5 mg PO 1700 [facility]
[2018-03-06] MEDS ORDERED: Bisacodyl 10 MG SUPP PR SCH (10:45)
[2018-03-06] MEDS ORDERED: Haloperidol 5 MG TAB PO PRN (11:47)
--- NOTE | 2018-03-06 13:24 | DIS ---
DATE OF ADMISSION: 03/03/2018 DATE OF DISCHARGE: 03/06/2018 PRIMARY CARE PHYSICIAN: Dr. Fabien Polanco. DISCHARGE DISPOSITION: Rehab. PRIMARY DISCHARGE DIAGNOSES: 1. Chronic obstructive pulmonary disease exacerbation. 2. Dizziness. 3. Rhabdomyolysis. 4. Seizure. 5. Syncope. 6. Carotid stenosis. SECONDARY DISCHARGE DIAGNOSES: Chronic obstructive pulmonary disease, bipolar disorder, chronic anticoagulation, chronic atrial fibrillation, pacemaker, dyslipidemia, hypothyroidism, macrocytic anemia, and physical deconditioning. PRIMARY PROCEDURE/OPERATION: None. RADIOLOGICAL INVESTIGATION: CT brain did not show any acute process. CT [place] showed carotid stenosis. SIGNIFICANT LABORATORY DATA: WBC 7.5, hemoglobin 12.2, and platelet 137. INR 1.7. Creatinine 1.37. LFT normal. Cardiac enzyme negative. Urinalysis unremarkable. DISCHARGE MEDICATIONS: 1. Lipitor 40 mg p.o. at bedtime. 2. Synthroid 100 mcg p.o. daily. 3. Seroquel 200 mg p.o. at bedtime. 4. Aldactazide 1 tablet daily. 5. Warfarin 5 mg p.o. as directed. 6. Aspirin 81 mg daily. 7. Coreg 3.125 mg p.o. daily. 8. Vitamin B12 of 1000 mcg p.o. daily. 9. Pepcid 20 mg p.o. b.i.d. 10. Folic acid 1 mg daily. 11. MiraLAX 17 g p.o. daily. CONTRAINDICATION: None. CODE STATUS: Full code. INPATIENT CONSULTANTS: Dylan Foster MD was consulted for carotid stenosis. Mars Brown MD was consulted for syncope/seizure/CVA. Travis Kaufman MD was consulted for elevated troponin. TEST RESULTS PENDING ON DISCHARGE: None. ALLERGIES: LORAZEPAM. DISCHARGE PLAN: Posthospital, the patient is discharged to rehab. Subsequently , he will follow up with primary care physician and primary scientific technical writer. HOSPITAL COURSE: A 77-year-old male, who was admitted by me. Please see my HPI for further details. On admission, he was having dizziness and at home, there was question of seizure versus syncope. We did CT of brain, which was negative. CT [place] showed carotid stenosis and that is why Dr. Dylan Foster was consulted and he recommended to start aspirin therapy. There was no need of any surgical intervention. He had elevated troponin, which was related with rhabdomyolysis. Cardiology was consulted. They recommended pacemaker interrogation, which was done without any event. Neurology was also following and they recommended seizure medication, but the patient and family member did not wanted to start seizure medication at this point. EEG was unremarkable. He did not have any further neurological event while in the hospital. His orthostatic vitals were negative. On admission, he was also having COPD flare-up, which was treated with respiratory therapy. This patient has physical deconditioning and that is why he needs placement and with help of case sealer, we arranged rehabilitation. The patient is seen and examined at bedside today. Please see my progress note from today for further detail. Paperwork for discharge done. Discharge medication reconciliation done. Plan of care discussed with the family member. Total time spent on discharge day more than 35 minutes. Job ID: [id number] [email or web address]
[2018-03-06 15:48] VITALS: BP 171/74
[2018-03-06] MEDS ORDERED: Warfarin Sodium 7.5 MG TAB PO SCH (17:00)
[2018-03-06 17:45] LABS: Anion Gap 17 mmol/L (10-20); BUN (Urea Nitrogen) 36 mg/dL (8.4-25.7); Calc. Creatinine Clearance 60 mL/min (70-130); Calcium 10.5 mg/dL (7.8-10.44); Carbon Dioxide 25 mmol/L (23-31); Chloride 99 mmol/L (98-107); Estimated GFR-MDRD 43; Glucose 118 mg/dL (83-110); Potassium 3.7 mmol/L (3.5-5.1); Sodium 137 mmol/L (136-145)
--- NOTE | 2018-03-10 15:27 | PQF ---
NIRMAL HOLM SALIM NOORJIBHAI MD [id number] [facility] [id number] CLINICAL DOCUMENTATION CLARIFICATION FORM: POST DISCHARGE Addendum to original discharge summary date: ____ Late entry note date: __ DATE: 03/10/2018 ATTN: DR. HORN Please exercise your independent, professional judgment in responding to the clarification form. Clinical indicators are provided on the bottom of this form for your review Please check appropriate box(s): [ x ] Encephalopathy: Type: [ x ] Acute [ ] Subacute [ ] Chronic Etiology: [ ] Hypertensive [ ] Metabolic [ ] Toxic [ ] Hepatic with Coma [ ] Hepatic w/o Coma [ ] Hypoxic [ ] Septic [ ] in the setting of Seizure [x ] Unspecified [ ] in the setting of underlying dementia [ ] Other (please specify) [ ] Other diagnosis [ ] Unable to determine In addition, please specify: Present on Admission (POA): [ x ] Yes [ ] No [ ] Unable to determine For continuity of documentation, please document condition throughout progress notes and discharge summary. Thank You. CLINICAL INDICATORS - SIGNS / SYMPTOMS / LABS: H&P - acute encephalopathy, etiology uncertain, differential diagnosis is syncope/seizure/cerebrovascular accident. Need further investigation, consult neurology. Syncope/seizure Suspected CVA. 03/03 - CT of brain - negative 03/03 - CT [place] - Right carotid stenosis 03/04 Neuro consult - questionable seizure, early dementia 03/04 CT consult - Right carotid stenosis, seizure-like activity unrelated to carotid stenosis DS - Seizure Carotid stenosis RISK FACTORS: Seizure Carotid stenosis Rhabdomyolysis TREATMENTS: 03/04 - Neuro checks / neurology consult (This form is maintained as a part of the permanent medical record) 2014 [employer]. All Rights Reserved Nai Alvarez, [facility] [place] [facility]- [email or web address] [phone] HARSHAD
--- NOTE | 2018-03-10 15:45 | PQF ---
NIRMAL HOLM SALIM NOORJIBHAI MD [id number] [facility] [id number] CLINICAL DOCUMENTATION CLARIFICATION FORM: POST DISCHARGE Addendum to original discharge summary date: ____ Late entry note date: __ DATE: 03/10/2018 ATTN: DR. HORN Please exercise your independent, professional judgment in responding to the clarification form. Clinical indicators are provided on the bottom of this form for your review Please check appropriate box(s) to clarify if the following diagnosis has been ruled in or ruled out: CEREBRAL INFARCTION [ ] Ruled in diagnosis [ ] Continue to treat [ ] Resolved [ x ] Ruled out diagnosis [ ] Cannot rule out diagnosis [ ] Other diagnosis [ ] Unable to determine In addition, please specify: Present on Admission (POA): [ ] Yes [ x] No [ ] Unable to determine For continuity of documentation, please document condition throughout progress notes and discharge summary. Thank You. CLINICAL INDICATORS - SIGNS / SYMPTOMS / LABS: H&P - Suspected cerebrovascular accident. Patient has right-sided carotid stenosis 03/03 - CT Brain - did not show any acute process 03/03 - CT [place] - showed carotid stenosis 03/04-03/06 PN - Cerebral Infarction suspected DS - Carotid stenosis RISK FACTORS: Right carotid stenosis Seizure TREATMENTS Neuro consult Neuro checks PT/OT (This form is maintained as a part of the permanent medical record) 2014 [employer], [employer]. All Rights Reserved Nai Alvarez, UMAIR, [facility]-H [email or web address] [phone] [email or web address]
--- NOTE | 2018-03-10 16:17 | EKG ---
Test Reason : Blood Pressure : / mmHG Vent. Rate : 073 BPM Atrial Rate : 059 BPM P-R Int : 000 ms QRS Dur : 162 ms QT Int : 452 ms P-R-T Axes : 000 226 063 degrees QTc Int : 497 ms Electronic ventricular pacemaker Confirmed by CHRISTY DICKSON, LOUISE Hurtado ([id number]), editorial specialist PATRICA STODDARD ([id number]) on 03/10/2018 4:16:50 PM Referred By: Confirmed By:LOUISE HARRISON MD
== END 2018-03-06 18:43 | DRG 101 ==
LOC: ERS 12:34 → ERHOLD 14:46 → 2SE 18:27
PROVIDERS: ADMIT Internal Medicine; ATTEND Internal Medicine
PROC: 4B02XSZ Measurement of Cardiac Pacemaker, External Approach (ICD-10-PCS; principal; 2018-03-05)
DX: R56.9 Unspecified convulsions (principal); I69.354 Hemiplegia and hemiparesis following cerebral infarction affecting left non-dominant side; I50.32 Chronic diastolic (congestive) heart failure; J96.10 Chronic respiratory failure, unspecified whether with hypoxia or hypercapnia; J44.1 Chronic obstructive pulmonary disease with (acute) exacerbation; I13.0 Hypertensive heart and chronic kidney disease with heart failure and stage 1 through stage 4 chronic kidney disease, or unspecified chronic kidney disease; M62.82 Rhabdomyolysis; G93.40 Encephalopathy, unspecified; I48.2 Chronic atrial fibrillation; Z79.01 Long term (current) use of anticoagulants; Z99.81 Dependence on supplemental oxygen; Z95.0 Presence of cardiac pacemaker; E03.9 Hypothyroidism, unspecified; E83.52 Hypercalcemia; D53.9 Nutritional anemia, unspecified; T50.2X5A Adverse effect of carbonic-anhydrase inhibitors, benzothiadiazides and other diuretics, initial encounter; F41.9 Anxiety disorder, unspecified; F32.9 Major depressive disorder, single episode, unspecified; N18.3 Chronic kidney disease, stage 3 (moderate); F31.9 Bipolar disorder, unspecified; I65.21 Occlusion and stenosis of right carotid artery; E66.9 Obesity, unspecified; Z68.30 Body mass index [BMI] 30.0-30.9, adult; K59.00 Constipation, unspecified; R40.2362 Coma scale, best motor response, obeys commands, at arrival to emergency department; R40.2142 Coma scale, eyes open, spontaneous, at arrival to emergency department; R40.2252 Coma scale, best verbal response, oriented, at arrival to emergency department
CPT/HCPCS: 36415; 36416; 70450; 70496; 70498; 71045; 80048; 80053; 80061; 81003; 81015; 82550; 82553; 83735; 84146; 84443; 84484; 85025; 85610; 85730; 93005; 93306; 94640; 95816; 95819; 96374; J0360; J2930; J7620; J7626; Q0162; Q9966

== ENCOUNTER 2018-04-07 14:01 | Emergency (ER) | payer MEDICARE, BC ==
[2018-04-07 14:35] LABS: #Basophils 0.1 thou/uL (0.0-0.2); #Eosinphils 0.1 thou/uL (0.0-0.7); #Lymphocytes 1.5 thou/uL (1.20-3.40); #Monocytes 0.6 thou/uL (0.11-0.59); #Neutrophils 4.8 thou/uL (1.40-6.50); %Basophils 0.8 % (0.0-1.0); %Eosinophils 1.9 % (0.0-10.0); %Lymphocytes 21.1 % (21.0-51.0); %Neutrophils 68.3 % (42.0-75.0); Hemoglobin 12.4 g/dL (14.0-18.0); Mean Corpuscular HGB CONC 33.4 g/dL (32.0-36.0); Mean Corpuscular Hemoglobin 33.1 pg (27.0-31.0); Mean Corpuscular Volume 98.9 fL (78.0-98.0); Mean Platelet Volume 8.4 fL (7.4-10.4); Platelet Count 178 thou/uL (130-400); RBC Distribution Width 13.2 % (11.5-14.5); Red Blood Cell (RBC) Count 3.76 mill/uL (4.70-6.10); White Blood Cell (WBC) Count 7.1 thou/uL (4.8-10.8)
[2018-04-07 14:40] LABS: INR-International Normal Ratio 3.9; PTT 46.3 SEC (22.9-36.1); Prothrombin Time 38.3 SEC (12.0-14.7)
--- NOTE | 2018-04-07 14:53 | RAD ---
SINGLE VIEW OF THE CHEST: Comparison: 03-03-18 History: Edema and uncontrolled heart failure. FINDINGS: Single view of the chest shows a cardiomediastinal silhouette that is upper limits of normal in size. The pacemaker is unchanged in position. There is no evidence of consolidation, mass, or pleural effu mara. IMPRESSION: No evidence of acute cardiopulmonary disease. POS: [facility]
[2018-04-07 15:00] LABS: ALT (SGPT) 24 U/L (8-55); AST (SGOT) 27 U/L (5-34); Albumin 4.1 g/dL (3.4-4.8); Alkaline Phosphatase 71 U/L (40-150); Anion Gap 15 mmol/L (10-20); BUN (Urea Nitrogen) 28 mg/dL (8.4-25.7); Bilirubin, Total 0.6 mg/dL (0.2-1.2); CK (CPK) 134 U/L (30-200); Calc. Creatinine Clearance 0 mL/min (70-130); Calcium 9.9 mg/dL (7.8-10.44); Carbon Dioxide 28 mmol/L (23-31); Chloride 97 mmol/L (98-107); Estimated GFR-MDRD 53; Globulin 3.1 g/dL (2.4-3.5); Glucose 103 mg/dL (83-110); Lipase 47 U/L (8-78); Potassium 3.9 mmol/L (3.5-5.1); Protein, Total 7.2 g/dL (5.8-8.1); Sodium 136 mmol/L (136-145)
== END 2018-04-07 17:55 | disposition home or self-care (01) ==
LOC: ERS 14:01
DX: R79.1 Abnormal coagulation profile (principal); R60.0 Localized edema; I48.91 Unspecified atrial fibrillation; I50.9 Heart failure, unspecified; F31.9 Bipolar disorder, unspecified; Z86.73 Personal history of transient ischemic attack (TIA), and cerebral infarction without residual deficits; Z87.891 Personal history of nicotine dependence; Z79.891 Long term (current) use of opiate analgesic; Z79.899 Other long term (current) drug therapy; Z79.01 Long term (current) use of anticoagulants
CPT/HCPCS: 36415; 71045; 80053; 82550; 83690; 83880; 84484; 85025; 85610; 85730; 93005

== ENCOUNTER 2020-04-25 13:01 | Outpatient (CLI) | payer MEDICARE, BC | END 2020-04-25 13:02 | disposition home or self-care (01) | LOC: BICRAD 13:01 | PROVIDERS: ATTEND Internal Medicine Critical Care Medicine | DX: R06.00 Dyspnea, unspecified (principal) | CPT/HCPCS: 71046 ==